=== PATIENT | female | born 1945 | race Caucasian/White ===

== ENCOUNTER 2018-01-15 06:39 | Day surgery (SDC) | payer MEDICARE, OTHER ==
[~2018-01-15 06:39] MED LIST: ACETAMINOPHEN 325 MG TAB PO
[2018-01-15] MEDS ORDERED: PHENYLEPHRINE HCL 10 % OPHTH. SOL 5ML OS (07:00)
[2018-01-15] MEDS ORDERED: PROPARACAINE 0.5% OPHTH SOL 15ML OS (07:01)
[2018-01-15] MEDS ORDERED: CYCLOPENTOLATE 2% OPHTH SOLN 2ML BTL As Ordered (07:14)
[2018-01-15] MEDS ORDERED: TROPICAMIDE 1% OPHTH SOLN 2ML As Ordered (07:14)
[2018-01-15] MEDS ORDERED: PHENYLEPHRINE 2.5% OPHTH SOL 2ML As Ordered (07:14)
[2018-01-15] MEDS ORDERED: OFLOXACIN 0.3 % (OCUFLOX) OPTH SOL 5ML As Ordered (07:14)
[2018-01-15] MEDS: TROPICAMIDE 1% OPHTH SOLN 2ML OS (07:38)
[2018-01-15] MEDS: CYCLOPENTOLATE 2% OPHTH SOLN 2ML BTL OS (07:38)
[2018-01-15] MEDS: PHENYLEPHRINE 2.5% OPHTH SOL 2ML OS (07:38)
[2018-01-15] MEDS: LIDOCAINE 3.5 % 1ML OPHTH TOPICAL GEL OU (07:38)
[2018-01-15] MEDS: OFLOXACIN 0.3 % (OCUFLOX) OPTH SOL 5ML OS (07:38)
[2018-01-15] MEDS ORDERED: fentaNYL 100 MCG/2 ML INJECTION (J3010) As Ordered (09:11)
[2018-01-15] MEDS ORDERED: MIDAZOLAM INJ 2 MG/2 ML VIAL (J2250) As Ordered (09:11)
[2018-01-15] MEDS: POVIDONE-IODINE 5% OPHTH PREP SOL 30ML As Ordered (09:14)
[2018-01-15] MEDS: LIDOCAINE 1% SDV 5 ML VIAL As Ordered (09:14)
[2018-01-15] MEDS: CEFUROXIME 1MG/0.1ML INTRACAMERAL INJ As Ordered (09:14)
[2018-01-15] MEDS: HEALON DUET (HEALON 10MG/ML 0.55ML & HEALON ENDOCOAT 30MG/ML 0.85ML) As Ordered (09:14)
[2018-01-15] MEDS: BALANCED SALT IRRIGATION SOLUTION 500ML BAG (FOR OR EYE MACHINE) As Ordered (09:14)
[2018-01-15] MEDS ORDERED: PROPOFOL 200 MG/20 ML VIAL As Ordered (09:21)
[2018-01-15] MEDS ORDERED: TRIMETHOBENZAMIDE 300 MG CAP PO (10:00)
[2018-01-15] MEDS ORDERED: KETOROLAC 0.5% OPHTH SOLN OS (10:00)
== END 2018-01-15 10:15 | disposition home or self-care (01) ==
LOC: M SDC 06:39
DX: H25.12 Age-related nuclear cataract, left eye (principal); Z88.2 Allergy status to sulfonamides; Z79.82 Long term (current) use of aspirin
CPT/HCPCS: 66984